=== PATIENT | male | born 1990 | race Caucasian/White ===

== ENCOUNTER → 2019-04-23 | Outpatient (CLI) | payer BC ==
[~2019-04-23] MED LIST: ALBUTEROL0.09 MG/A1 IH; HYDROCODONE/APAP; IBUPROFEN800 MG PO; LORTAB 5/500 501 TAB PO; MS CONTIN15 MG PO; NO HOME MEDICATIONS; NORCO 325 MG-51 TAB; NORCO 325 MG-51 TAB PO; PERCOCET 500 MG1 TAB PO; PHENERGAN W/CO120 ML PO
== END ==
LOC: COL.RAD 15:30
DX: N50.89 Other specified disorders of the male genital organs (principal)

== ENCOUNTER 2019-05-03 06:19 | Day surgery (SDC) | payer BC ==
[2019-05-03] VITALS (12 sets, daily range): BP systolic 108–134; BP diastolic 53–85; PULSE 71–94; TEMP 97.8–98.6
[~2019-05-03] VITALS: Ht 177.8 cm; Wt 120.7 kg
[2019-05-03] MEDS ORDERED: LEVAQUIN 2250 MG/TAB (07:03)
[2019-05-03] MEDS ORDERED: MULTI VITAMINS1 TAB PO (07:04)
[2019-05-03] MEDS ORDERED: VITAMIN C500 MG PO (07:05)
[2019-05-03] MEDS ORDERED: OMEGA-3 1000 MG1 CAP PO (07:05)
--- NOTE | 2019-05-03 07:15 | NUR ---
Lying in bed with eyes open. CICI Stephens, completing initial assessment. Patient denies pain or needs at this time.
--- NOTE | 2019-05-03 07:17 | NUR ---
Pt. to floor. Pt. is A&OX3, assessment complete. IV started to Rt. hand, preop fluids infusing per orders. Pt. denies pain or other needs, call light within reach.
--- NOTE | 2019-05-03 07:24 | NUR ---
Consent reviewed with the patient. Questions answered. Consent signed and placed on chart. Surgical nurse in room to take patient to surgery via bed.
--- NOTE | 2019-05-03 10:37 | NUR ---
Patient to room via bed by PACU staff. Patient is alert and oriented x3. Rates pain 3/10 at this time. Scrotal support in place. Low abd dressing CDI. Mom in room with the patient.
--- NOTE | 2019-05-03 10:38 | NUR ---
Patient was not in the room and I believe had been discharged.
--- NOTE | 2019-05-03 11:05 | NUR ---
Administered Percocet two tablets as prescribed, patient says that he is starting to feel the pain at his incision increase to a 4/10 and would like to stay on top of the pain. Ice pack applied to scrotal/incisional area. SCDs in place. Patient's mother in room. Denies further needs at this time.
--- NOTE | 2019-05-03 13:58 | NUR ---
Patient says that his pain is starting to increase and he knows that he will need to get up to ambulate and try to pee and would like to get pain medication now. Administered Morphine as prescribed. Patient denies further needs at this time.
--- NOTE | 2019-05-03 15:19 | NUR ---
Patient would like to go to bathroom to see if he can urinate. Gait steady into bathroom. Stand by assist if needed. Voids 450mL clear dark yellow urine. Ambulates in halls to nurses station and back to room. Patient says that he overall at this time feels good. Rates pain 2/10 in abd. Returns to bed. Denies further needs. Family in room with the patient.
--- NOTE | 2019-05-03 18:15 | NUR ---
Sitting up in bed with eyes open. Rates pain 2/10. Denies any needs or concerns at this time. Father in room with the patient.
--- NOTE | 2019-05-03 19:30 | NUR ---
Pt. sitting up in bed with mother at bedside. Pt. is A&OX3, assessment complete. INT to lt. hand patent. Pt. tolerating PO. Pt. reports pain at a 3 at this time. Pt. denies need for pain meds. Pt. denies further needs, call light within reach.
[2019-05-04 03:34] VITALS: BP 101/56; PULSE 65; TEMP 97.8
[2019-05-04 07:42] VITALS: BP 118/61; PULSE 84; TEMP 97.6
--- NOTE | 2019-05-04 07:55 | NUR ---
Lying in bed with eyes open. Rates pain 2/10 in abd. Dressing to abd CDI. Has scrotal swelling, more on the right. Scrotal support in place. Patient has ice pack to incision area and scrotal area. Mom in room with the patient.
--- NOTE | 2019-05-04 10:00 | NUR ---
Administered Percocet as prescribed per patient request. Patient will get dressed and prepare for discharge. Mom here with the patient. Explained that we will get his discharge paperwork together and come down to go over discharge instructions. Patient and mother verbalize understanding.
--- NOTE | 2019-05-04 10:25 | NUR ---
Reviewed discharge instructions with the patient and his mother. Questions answered. Patient signs documents. Provided discharge packet to the patient. Patient assisted out to POV via wheelchair by SILVER Urbano.
== END 2019-05-04 10:26 | disposition home or self-care (01) ==
LOC: SDCO 06:19 → SURG 06:20 → SDCO 08:00
DX: C62.11 Malignant neoplasm of descended right testis (principal); Z88.1 Allergy status to other antibiotic agents; Z87.891 Personal history of nicotine dependence
CPT/HCPCS: OP; A9284; J0690; J1100; J1885; J2250; J2270; J2405; J2704; J3010; J7120

== ENCOUNTER → 2019-07-25 | Outpatient (CLI) | payer BC ==
[2019-07-25] VITALS (15 sets, daily range): BP systolic 109–154; BP diastolic 70–92; PULSE 68–87
[~2019-07-25] VITALS: Ht 177.8 cm; Wt 111.7 kg
[~2019-07-25] MED LIST changes: +LEVAQUIN 2250 MG/TAB; +MULTI VITAMINS1 TAB PO; +NEURONTIN300 MG/CAP PO; +OMEGA-3 1000 MG1 CAP PO; +OXY IR5 MG PO; +ROBAXIN 75750 MG/TAB PO; +VITAMIN C500 MG PO
--- NOTE | 2019-07-25 13:30 | NUR ---
pt to ct per ambulation. Pt into room. Dr Johansen wants pt positioned left side down. Monitors applied. O2 on at 2l/nc.
--- NOTE | 2019-07-25 13:50 | NUR ---
pt reports feeling more relaxed following medications. Resp even and easy.
--- NOTE | 2019-07-25 14:04 | NUR ---
Drainage obtained from abscess and placed in cup by Dr Johansen. Specimen labeled.
--- NOTE | 2019-07-25 14:20 | NUR ---
Dr Johansen unable to place drain in small retroperitoneal abscess. Pt informed of abscess appears to be loculated. Minimal drainage approximately 5 mls obtained from site.
== END ==
LOC: COL.RAD 12:30
DX: C62.11 Malignant neoplasm of descended right testis (principal); R11.0 Nausea; R10.11 Right upper quadrant pain; R10.12 Left upper quadrant pain
CPT/HCPCS: C1729; J2250; J3010

== ENCOUNTER → 2019-07-25 | Outpatient (CLI) | payer BC | LOC: ZCOL.LAB 16:03 | DX: L02.91 Cutaneous abscess, unspecified (principal) ==

== ENCOUNTER → 2019-10-01 | Outpatient (CLI) | payer BC | LOC: COL.LAB 15:09 | DX: Z85.47 Personal history of malignant neoplasm of testis (principal) ==